=== PATIENT | female | born 1950 | race Caucasian/White ===

== ENCOUNTER → 2016-06-15 | Outpatient (CLI) | payer MEDICARE, OTHER | LOC: RAD 15:23 | PROVIDERS: ATTEND Internal Medicine | DX: C34.90 Malignant neoplasm of unspecified part of unspecified bronchus or lung (principal) | CPT/HCPCS: 71250 ==

== ENCOUNTER 2016-08-08 11:54 | Emergency (ER) | payer MEDICARE, OTHER ==
--- NOTE | 2016-08-08 12:45 | ER Document Report ---
ED General - General Time seen by provider: 12:20 Mode of Arrival: Wheelchair Information source: Patient, Relative - son and daughter in law TRAVEL OUTSIDE OF THE [place] IN LAST 30 DAYS: No - HPI Onset: Other - see HPI note <TOMAS SEALS - Last Filed: 08/08/16 12:38> <ASHA MORSE - Last Filed: 08/08/16 17:36> - General Chief Complaint: Breathing Difficulty Stated Complaint: DIFFICULTY BREATHING Notes: Patient is a 66 year old female presenting to the emergency department with difficulty breathing. Patient was initially 75% O2 saturation on 3L O2. Patient was given a duo neb x2 and 125 mg solumedrol IV. Patient's O2 saturation went up to 98%. Patient also has some choreoathetosis movements of her right upper extremity. Patient states her legs also have these involuntary movements if she stands to walk. Patient has had this evaluated by a neurologist recently and her symptoms have progressed since then. Patient was having some difficulty walking and talking on Sunday while she was visiting her sister. Patient got better with this by Sunday night and was okay throughout the day on Sunday. Sunday night the patient started having some difficulty with this again and difficulty grasping things. It has continued into today. Patient just got a PET scan on Sunday to further study a possible cancerous area to her lung. Patient was intubated in the field on 05/04/16 and admitted for respiratory distress. Patient was discharged to a long term for recovery on 05/17/16. Patient recently just got out of the long term and is living back at home. Patient has a cough and some nasal congestion. Patient is on 3 L of O2 at home. Patient' s neurologist is Dr. Borja. Patient is allergic to penicillin. (TOMAS SEALS) - Related Data Allergies/Adverse Reactions: Penicillins Allergy (Verified 08/08/16 12:34) Past Medical History - General Information source: Patient, Relative - son and daughter in law - Social History Smoking Status: Former Smoker Cigarette use (# per day): No Chew tobacco use (# tins/day): No Frequency of alcohol use: None Drug Abuse: None Family History: None Patient has suicidal ideation: No Patient has homicidal ideation: No - Past Medical History Cardiac Medical History: Reports: Hx Hypercholesterolemia Pulmonary Medical History: Reports: Hx COPD Malignancy Medical History: Reports: Hx Breast Cancer, Hx Lung Cancer GI Medical History: Reports: Hx Gastroesophageal Reflux Disease Psychiatric Medical History: Reports: Hx Depression Past Surgical History: Reports: Hx Mastectomy - RIGHT - Immunizations Hx Diphtheria, Pertussis, Tetanus Vaccination: Yes Hx Pneumococcal Vaccination: 03/11/11 <TOMAS SEALS - Last Filed: 08/08/16 12:38> Review of Systems - Review of Systems Constitutional: No symptoms reported EENT: No symptoms reported Cardiovascular: No symptoms reported Respiratory: No symptoms reported Gastrointestinal: No symptoms reported Genitourinary: No symptoms reported Female Genitourinary: No symptoms reported Musculoskeletal: No symptoms reported Skin: No symptoms reported Hematologic/Lymphatic: No symptoms reported Neurological/Psychological: No symptoms reported -: Yes All other systems reviewed and negative <TOMAS SEALS - Last Filed: 08/08/16 12:38> Physical Exam - Vital signs Interpretation: Normal - General General appearance: Appears well, Alert In distress: Mild - HEENT Head: Normocephalic, Atraumatic Eyes: Normal Pupils: PERRL Nasal: Other - nasal canula in place Mucous membranes: Moist - Respiratory Respiratory status: No respiratory distress Chest status: Nontender Breath sounds: Other - some slight wheezes and rhonchi Chest palpation: Normal - Cardiovascular Rhythm: Regular Heart sounds: Normal auscultation Murmur: No - Abdominal Inspection: Normal Distension: No distension Bowel sounds: Normal Tenderness: Nontender Organomegaly: No organomegaly - Back Back: Normal, Nontender - Extremities General upper extremity: Other - right upper arm has some choreoathetosis movments; this is mostly on the right side and patient states it also happens to her legs if she tries to stand General lower extremity: Normal inspection, Normal ROM, Normal strength - Neurological Neuro grossly intact: Yes Cognition: Normal Orientation: AAOx4 [place] Coma Scale Eye Opening: Spontaneous [place] Coma Scale Verbal: Oriented [place] Coma Scale Motor: Obeys Commands [place] Coma Scale Total: 15 Speech: Normal - Psychological Associated symptoms: Normal affect, Normal mood - Skin Skin Temperature: Warm Skin Moisture: Dry <TOMAS SEALS - Last Filed: 08/08/16 12:38> <ASHA MORSE - Last Filed: 08/08/16 17:36> - Vital signs Vitals: Temp Pulse Resp BP Pulse Ox 98.1 F 88 19 100/63 98 08/08/16 12:15 08/08/16 12:15 08/08/16 12:15 08/08/16 12:15 08/08/16 12:15 Course <TOMAS SEALS - Last Filed: 08/08/16 12:38> - Laboratory Result Diagrams: 08/08/16 13:05 08/08/16 13:05 - Diagnostic Test Radiology reviewed: Image reviewed, Reports reviewed - Chest x-ray shows a left retrocardiac mass which is stable since compared to a CT scan a month and a half ago. There is opacification on the right chest consistent with a prior right pneumonectomy. MRI of the brain shows mild prominence of the lateral and third ventricles which is stable compared to thousand 9. The substantia nigra in the brainstem is not well seen, this could correlate with parkinsonism. There is no evidence of metastatic disease seen. - EKG Interpretation by Ri EKG shows normal: Sinus rhythm, [place], ST-T Waves. abnormal: Intervals - Prolonged QT interval, QRS Complexes Rate: Normal - 96 Rhythm: NSR [place]/QRS: RBBB - Incomplete right bundle-branch block When compared to previous EKG there are: No significant change <ASHA MORSE - Last Filed: 08/08/16 17:36> - Re-evaluation Re-evalutation: 08/08/16 14:25 The patient's case was discussed with Dr. Borja who is her neurologist at [facility]. He has not seen her in over a year. His previous office notes showed she had complained of a tremor to the right upper extremity but it was not severe enough to need treatment. She has not had this athetotic type movement disorder that she exhibits today. He recommends if scanning the head does not show a problem, then to place the patient on 0.25 mg clonazepam twice a day and for her to call the office for a follow-up appointment. The PET scan done yesterday shows a metabolically active nodule in the left retrocardiac chest consistent with a malignancy. We will get an MRI of the brain with and without contrast to evaluate for possible metastatic disease as a cause of her neurological symptoms. (ASHA MORSE) - Vital Signs Vital signs: Temp Pulse Resp BP Pulse Ox 98.1 F 88 21 H 114/73 94 08/08/16 12:15 08/08/16 12:15 08/08/16 15:03 08/08/16 15:03 08/08/16 15:03 - Laboratory Laboratory results interpreted by me: 08/08/16 08/08/16 13:05 13:05 Hgb 11.0 L Hct 33.3 L Seg Neutrophils % 84.7 H Lymphocytes % 7.3 L Absolute Neutrophils 8.8 H Potassium 3.5 L Chloride 89 L Carbon Dioxide 37 H BUN 23 H Discharge <TOMAS SEALS - Last Filed: 08/08/16 12:38> <ASHA MORSE - Last Filed: 08/08/16 17:36> - Discharge Clinical Impression: Tremor, Mass of left lung, Abnormal finding on MRI of brain Condition: Stable Disposition: HOME, SELF-CARE Additional Instructions: Your MRI did not show evidence of metastatic disease to the brain. It did show an abnormality that could be related to Parkinsonism. Take the medication as prescribed to see if it helps your tremor. Call Dr. Buchanan to schedule a follow-up appointment. RETURN TO THE EMERGENCY ROOM IF ANY NEW OR WORSENING SYMPTOMS. Prescriptions: Clonazepam [Klonopin 0.25 mg Tablet Rapid Dissolve] 0.25 mg PO BID #30 tab.rapdis Referrals: ELIJAH MALDONADO MD [Primary Care Provider] - Follow up as needed Scribe Attestation: 08/08/16 17:36 I personally performed the services described in the documentation, reviewed and edited the documentation which was dictated to the scribe in my presence, and it accurately records my words and actions. (ASHA MORSE) Scribe Documentation - Scribe Written by Andrea:: Tomas Seals 08/08/16 13:00 acting as scribe for :: Clarice <TOMAS SEALS - Last Filed: 08/08/16 12:38>
[2016-08-08 13:25] LABS: ABSOLUTE BASOPHILS # (AUTO) 0.1 10^3/uL (0.0-0.2); ABSOLUTE EOSINOPHILS # (AUTO) 0.2 10^3/uL (0.0-0.6); ABSOLUTE LYMPHOCYTES (AUTO) 0.8 10^3/uL (0.5-4.7); ABSOLUTE MONOCYTES (AUTO) 0.5 10^3/uL (0.1-1.4); ABSOLUTE NEUT (AUTO) 8.8 10^3/uL (1.7-8.2); BASOPHILS % (AUTO) 1.1 % (0-2); EOSINOPHILS % (AUTO) 1.9 % (0-6); HEMATOCRIT 33.3 % (36.0-47.0); HGB HCT DIFFERENCE -0.3; LYMPHOCYTES % (AUTO) 7.3 % (13-45); MEAN CORPUSCULAR HEMOGLOBIN 29.1 pg (27.0-33.4); MEAN CORPUSCULAR VOLUME 88 fl (80-97); RED BLOOD COUNT 3.77 10^6/uL (3.72-5.28); RED CELL DISTRIBUTION WIDTH 13.9 % (11.5-14.0); SEGMENTED NEUTROPHILS % (AUTO) 84.7 % (42-78); WHITE BLOOD COUNT 10.4 10^3/uL (4.0-10.5)
[2016-08-08 13:46] LABS: ALANINE AMINOTRANSFERASE 22 U/L (9-52); ALKALINE PHOSPHATASE 74 U/L (38-126); ANION GAP 11 (5-19); ASPARTATE AMINO TRANSFERASE 22 U/L (14-36); BILIRUBIN,TOTAL 0.5 mg/dL (0.2-1.3); BLOOD UREA NITROGEN 23 mg/dL (7-20); CALCIUM 8.9 mg/dL (8.4-10.2); CARBON DIOXIDE 37 mmol/L (22-30); CHLORIDE 89 mmol/L (98-107); CREATINE KINASE 33 U/L (30-135); CREATININE RESULT 0.78 mg/dL (0.52-1.25); GLUCOSE 96 mg/dL (75-110); POTASSIUM 3.5 mmol/L (3.6-5.0); TOTAL PROTEIN 6.8 g/dL (6.3-8.2)
[2016-08-08 13:58] LABS: CREATINE KINASE MB 0.71 ng/mL (<4.55); TROPONIN I < 0.012 ng/mL
[2016-08-08 15:39] LABS: APPEARANCE,URINE CLEAR; BILIRUBIN,URINE NEGATIVE (NEGATIVE); GLUCOSE, URINE NEGATIVE (NEGATIVE); KETONES,URINE NEGATIVE (NEGATIVE); LEUKOCYTE ESTERASE,URINE NEGATIVE (NEGATIVE); NITRITE,URINE NEGATIVE (NEGATIVE); PROTEIN,URINE NEGATIVE (NEGATIVE); URINE SPECIFIC GRAVITY 1.009; UROBILINOGEN,URINE NEGATIVE mg/dL (<2.0)
[2016-08-08 18:06] VITALS: BP 123/75
--- NOTE | 2016-08-08 18:18 | EKG REPORT ---
SEVERITY:- ABNORMAL ECG - SINUS RHYTHM INCOMPLETE RIGHT BUNDLE BRANCH BLOCK PROLONGED QT INTERVAL : Confirmed by: Kota Merrill MD 08-Aug-2016 18:18:00
== END 2016-08-08 18:05 | disposition home or self-care (01) ==
LOC: ER 11:54
DX: R25.1 Tremor, unspecified (principal); R90.89 Other abnormal findings on diagnostic imaging of central nervous system; R91.8 Other nonspecific abnormal finding of lung field; J44.9 Chronic obstructive pulmonary disease, unspecified; R06.00 Dyspnea, unspecified; R05 Cough; R09.81 Nasal congestion; I45.10 Unspecified right bundle-branch block; Z99.81 Dependence on supplemental oxygen; Z88.0 Allergy status to penicillin; Z85.3 Personal history of malignant neoplasm of breast; Z85.118 Personal history of other malignant neoplasm of bronchus and lung
CPT/HCPCS: 93005; 99285; 36415; 82553; 82550; 85025; 80053; 81001; 84484; 70553; 71010; 93010; A9577